=== PATIENT | female | born 1970 | race Caucasian/White ===

== ENCOUNTER 2020-05-29 14:42 | Emergency (ER) | payer OTHER, SELFPAY ==
--- NOTE | ~2020-05-29 | XR_ITS ---
XR knee RT min 4V DATE: 05/29/2020 15:24 INDICATION: Anterior posterior pain and popping while walking TECHNIQUE: 4 views including cross table lateral COMPARISON: None FINDINGS: There is mild jennifer-articular spurring of the patella. No fracture or dislocation, periosteal reaction or bone destruction. No radiopaque intra-articular l oose body or chondrocalcinosis. Joint spaces are well preserved. IMPRESSION: Mild patellofemoral osteoarthritis Reviewed, dictated and finalized at location [facility]
[2020-05-29 15:00] VITALS: BP 149/77; PULSE 93; RESP 20; TEMP 37.3; O2SAT 98
--- NOTE | 2020-05-29 15:24 | ED.LOWEXIN ---
HPI - Extremity Injury (Lower) General Chief Complaint: Extremity Injury, Lower Stated Complaint: Extremity Injury, Lower Time Seen by Provider: 05/29/20 15:15 Source: patient and RN notes reviewed Mode of arrival: ambulatory Limitations: no limitations History of Present Illness HPI Narrative: 49 year old female who presents to [facility] with complaints of right knee pain since the 25 of May. Patient states that she was walking at home and she felt her knee lock. Patient states that she has had to manipulate her knee at times and has heard popping. Patient has mild swelling to knee with stated tingling and numbness to lower thigh region. Patient states that pain is increased with weight bearing and with bending of right knee. Patient has strong pedal and posterior tibial pulses, foot and leg are pink and warm to touch. No acute warmth or redness to knee noted or acute swelling. Patient states that she has used ice and heat to her knee can't take a lot of Ibuprofen or Aleve due to colon diverticulitis. MD complaint: knee injury Onset (ago): day(s) (5) Injury: Right: knee (patellar) Type of Injury: unknown Place: home Severity: moderate Severity scale (1-10): 5 (throbbing, ache) Exacerbating factors: weight bearing, movement and other (bending) Context: walking Associated symptoms: snap/pop sensation, swelling, numbness, tingling (lower right thigh) and ambulatory (with limp) Other symptoms: none Treatments prior to arrival: cold therapy and other (heat) Related Data Home Medications Medication Instructions Recorded Confirmed pantoprazole 40 mg PO HS 05/29/20 05/29/20 Allergies Allergy/AdvReac Type Severity Reaction Status Date / Time No Known Allergies Allergy Verified 05/29/20 15:09 Review of Systems Review of Systems: Narrative: CONSTITUTIONAL: Denies fever, chills, or sweats. EYES: Denies visual changes, redness, or discharge. ENT: Denies rhinorrhea, congestion, sore throat, or otalgia. CARDIOVASCULAR: Denies chest pain, palpitations, or edema. RESPIRATORY: Denies cough or dyspnea. GASTROINTESTINAL: Denies abdominal pain, nausea, vomiting, or diarrhea. GENITOURINARY: Denies dysuria or hematuria. SKIN: Denies rash or itching. MUSCULOSKELETAL: Denies back pain, positive for right knee joint pain, or myalgia. NEUROLOGIC: Denies headache, numbness, or weakness. PSYCHIATRIC: Denies anxiety or depression. All systems reviewed & are unremarkable except as noted in HPI and below PMFSH Past Medical History Medical History (Updated 05/31/20 @ 17:18 by Jhoana Wiley NP) Acute adjustment disorder with anxiety Diverticulitis GERD (gastroesophageal reflux disease) Right anterior knee pain Surgical History Surgical History (Updated 05/31/20 @ 10:33 by Jhoana Wiley NP) H/O repair of left rotator cuff H/O umbilical hernia repair H/O: hysterectomy Hx of cholecystectomy Previous section Family History Family History (Updated 05/31/20 @ 10:31 by Jhoana Wiley NP) Father Carcinoma of colon Social History Social History (Updated 05/31/20 @ 10:32 by Jhoana Wiley NP) Smoking status: Never smoker Alcohol intake: never Substance use: never Living arrangements: with family Gender identity (if verbalized by the patient): Female Comments At time of signature, agree with nursing past medical, surgical, social and family history. There is no relevant family history pertinent to the presenting complaint Exam Narrative: Exam Narrative: GENERAL: Well-appearing, well-nourished, obese, in no acute distress. HEAD: Normocephalic, atraumatic. EYES: PERRLA and EOMI. ENT: Nares clear, no rhinorrhea or epistaxis. Mucous membranes moist.TM's normal with good light reflex, no throat redness or swelling of tonsils, no exudates or lesions. NECK: Supple.no lymphadenopathy CHEST: Clear to auscultation. No respiratory distress.SAO2 98% on room air HEART: Regular rate and rhythm. No murmur
--- NOTE | 2020-05-29 15:25 | PC.NURSE ---
PT TAKEN TO RADIOLOGY IN WHEELCHAIR. PT DECLINED ICE FOR COMFORT
== END 2020-05-29 16:05 | disposition home or self-care (01) ==
PROVIDERS: Emergency Provider Registered Nurse; PCP Family Medicine
DX: M25.561 Pain in right knee (principal); M17.11 Unilateral primary osteoarthritis, right knee; K21.9 Gastro-esophageal reflux disease without esophagitis
CPT/HCPCS: 73564; 99213; G0463

== ENCOUNTER → 2024-05-28 15:43 | Outpatient (REF) | payer OTHER, SELFPAY | LOC: ANHLAB 15:43 | PROVIDERS: PCP Family Medicine; Visit Provider Plastic Surgery | DX: C44.519 Basal cell carcinoma of skin of other part of trunk (principal) | CPT/HCPCS: 88305 ==